=== PATIENT | female | born 1990 | race Caucasian/White ===

== ENCOUNTER 2024-02-17 09:20 | Outpatient (CLI) | payer OTHER, SELFPAY ==
[2024-02-17 14:37] LABS: Thyroid Stimulating Hormone Reflex 5.27 u/IU/mL (0.36-3.74)
[2024-02-17 15:02] LABS: Free T4 Free Thyroxine Reflex 0.98 ng/dL (0.76-1.46)
== END 2024-02-17 09:21 | disposition home or self-care (01) ==
LOC: CHSLAB 09:25
PROVIDERS: PCP Family Medicine
DX: E03.9 Hypothyroidism, unspecified (principal)
CPT/HCPCS: 36415; 84439; 84443

== ENCOUNTER 2024-09-04 09:44 | Outpatient (CLI) | payer OTHER, SELFPAY ==
--- OUTSIDE RECORDS SUMMARY | 2024-09-04 10:40 | XMS_ITS | Clinical Summary ---
Author Organization [facility] Address [address] [place] [address] Care Team Providers Care Dog Breeder Name Role Phone Ayush Pablito Hatfield DO Primary Care Provider [phone] Source Comments [facility],non-owned Affiliates and Associated Physician Practices is amultiple site organization consisting of ambulatory clinics and hospital sitesin [place], [place], [place] and [place]. This disclosure is being madepursuant to the Care Everywhere program and may not contain all information available regarding this patient. Last updated 18.[employer] [facility] Allergies No known active allergies Medications Be aware that medications may not be up to date on this document. Always verify current medications with the patient. No known medications Immunizations Name Administration Dates Next Due TDAP (7yrs+) 04/11/2019 Social History Tobacco Use Types Packs/Day Years Used Date Smoking Tobacco: Never Smokeless Tobacco: Never Estimated Date of Delivery Comme nts Yes 05/30/2019 Sex and Gender Information Value Date Recorded Sex Assigned at Not on file Gender Identity Not on file Sexual Orientation Not on file Last Filed Vital Signs Vital Sign Reading Time Taken Comments Blood Pressure 116/68 04/11/2019 3:18 PM SOFTWARE DEVELOPER MANAGER Pulse 72 04/11/2019 3:18 PM SOFTWARE DEVELOPER MANAGER Temperature 36.7 C (98.1 F) 04/11/2019 3:18 PM SOFTWARE DEVELOPER MANAGER Respiratory Rate - - Oxygen Saturation - - Inhaled Oxygen Concentration - - Weight 68.9 kg (152 lb) 04/11/2019 3:18 PM SOFTWARE DEVELOPER MANAGER Height 167.6 cm (5' 6 ) 04/11/2019 3:18 PM SOFTWARE DEVELOPER MANAGER Body Mass Index 24.53 04/11/2019 3:18 PM SOFTWARE DEVELOPER MANAGER Plan of Treatment Health Maintenance Due Date Last Done Comments PAP SMEAR 1991 HIV SCREENING 09/16/2006 HEPATITIS C SCREENING 09/12/2009 HEPATITIS B VACCINE (1 of 3 - 19+ 3-dose series) 09/16/2010 COVID-19 VACCINE ( - 2023-2 5 season) 2024 INFLUENZA VACCINE (#1) 2024 DEPRESSION SCREENING 06/06/2024 DTAP/TDAP/TD VACCINES (2 - T d or Tdap) 04/11/2029 04/11/2019 ZOSTER VACCINE (1 of 2) 09/16/2041 Respiratory Syncytial Virus (RSV) Vaccine Pt: or over 60 yrs (1 - 1-dose 75+ series) 09/16/2066 HIB VACCINE Aged Out No longer eligi ble based on patient's age to complete this topic HPV VACCINE Aged Out No longer eligi ble based on patient's age to complete this topic MENINGOCOCCAL (Group B) VACC INE SHARED DECISION-MAKING Aged Out No longer eligibl e based on patient's age to complete this topic MENINGOCOCCAL GROUPS A/C/Y/W VACCINE Aged Out No longer eligible b ased on patient's age to complete this topic PNEUMOCOCCAL VACCINE Aged Out No long er eligible based on patient's age to complete this topic Care Teams Dog Breeder Relationship Specialty [place] [address] [address] [address] PCP - General Family Medicine 04/04/19
--- OUTSIDE RECORDS SUMMARY | 2024-09-04 10:40 | XMS_ITS | Encounter Summary ---
Author Organization [facility] Health Address [facility] [place] [address] Care Team Providers Care Rig Builder Name Role Phone Pablito Peacock DO Primary Care Provider [phone] Pablito Peacock DO Unavailable Pablito Peacock DO Unavailable Encounter Details Date Type Department Care Team (Late st Contact Info) Description 04/11/2019 [facility] Outpatient Visit EXTERNAL NON-[facility] [place] [place] [address] [place] [id number] Social History Tobacco Use Types Packs/Day Years Used Date Smoking Tobacco: Never Smokeless Tobacco: Never Estimated Date of Delivery Comme nts Yes 05/30/2019 Sex and Gender Information Value Date Recorded Sex Assigned at Not on file Gender Identity Not on file Sexual Orientation Not on file documented as of this encounter Plan of Treatment Not on file documented as of this encounter Visit Diagnoses Not on filedocumented in this encounter Care Teams Rig Builder Relationship Specialty [place] [address] [id number] PCP - General Family Medicine 04/04/19 [place] [address] [id number] PCP - Attributed-Exclusive Choice 04/06/19 06/05/19 [place] [address] [address] PCP - Attributed-[facility] 08/05/19 09/04/19 documented as of this encounter
--- OUTSIDE RECORDS SUMMARY | 2024-09-04 10:40 | XMS_ITS | Clinical Summary ---
Author Organization [facility] Address [facility] [place] [address] Care Team Providers Care Packaging Materials Inspector Name Role Phone Gael Macias MD Primary Care Provider [phone] Allergies No known active allergies Medications vitamin 28-0.6-0.4-340 MG capsule Take 1 capsule by mouth daily. Active Active Problems Problem Noted Date Diagnosed Date Labor and delivery, indication for care (HHS/HCC ) 11/20/2021 Hypothyroidism 11/20/2021 Immunizations Name Administration Dates Next Due MMR (MMRII) 11/21/2021 Social History Tobacco Use Types Packs/Day Years Used Date Smoking Tobacco: Never Smokeless Tobacco: Never Humiliation, Afraid, Rape, and Kick questionnair e Answer Date Recorded Within the last year, have y ou been afraid of your partner or ex-partner? No 11/20/2021 Within the last year, have y ou been humiliated or emotionally abused in other ways by your partner or ex-partner? No Within the last year, have y ou been kicked, hit, slapped, or otherwise physically hurt by your partner or ex-partner? No 11/20/2021 Within the last year, have y ou been raped or forced to have any kind of sexual activity by your partner or ex-partner? No 11/20/2021 Social Connection and Isolat ion Panel [NHANES] Answer Date Recorded In a typical week, how many times do you talk on the phone with family, friends, or neighbors? More than three times a week 11/20/2021 How often do you get togethe r with friends or relatives? Twice a week 11/20/2021 How often do you attend [facility] or [facility] services? More than 4 times per year 11/20/2021 Do you belong to any clubs o r organizations such as yarsanism groups, unions, fraternal or athletic groups, or school groups? Yes 11/20/2021 How often do you attend meet ings of the clubs or organizations you belong to? More than 4 times per year 11/20/2021 Are you , , di vorced, , never , or living with a partner? 11/20/2021 AUDIT-C Answer Date Recorded Q1: How often do you have a drink containing alcohol? Never 11/20/2021 Q2: How many drinks containi ng alcohol do you have on a typical day when you are drinking? Patient does not drink Q3: How often do you have si x or more drinks on one occasion? Never 11/20/2021 Overall Financial Resource Strain (CARDIA) Answe r Date Recorded How hard is it for you to pa y for the very basics like food, housing, medical care, and heating? Not hard at all 11/20/2021 [facility] - Occupational Stress Questionnaire Answer Date Recorded Do you feel stress - tense, restless, nervous, or anxious, or unable to sleep at night because your mind is troubled all the time - these days? Not at all 11/20/2021 Exercise Vital Sign Answer Date Recorde d On average, how many days pe r week do you engage in moderate to strenuous exercise (like a brisk walk)? 0 days 11/20/2021 On average, how many minutes do you engage in exercise at this level? 0 min 11/20/2021 Hunger Vital Sign Answer Date Recorded Within the past 12 months, y ou worried that your food would run out before you got the money to buy more. Never true 11/21/19 22 Within the past 12 months, t he food you bought just didn't last and you didn't have money to get more. Never true 11/20/2021 PRAPARE - Transportation Answer Date Re corded In the past 12 months, has l ack of transportation kept you from medical appointments or from getting medications? No 11/04 In the past 12 months, has l ack of transportation kept you from meetings, work, or from getting things needed for daily living? No 11/20/2021 Housing Stability Vital Sign Answer Paulino e Recorded In the last 12 months, was t here a time when you were not able to pay the mortgage or rent on time? No 11/20/2021 In the last 12 months, how many places have you lived? 1 11/20/2021 In the last 12 months, was t here a time when you did not have a steady place to sleep or slept in a [place] [facility] [place] (including now)? No 11/20/2021 Comments No Sex and Gender Information Value Date Recorded Sex Assigned at Not on file Legal Sex Female 9:04 AM CDT Gender Identity Not on file Sexual Orientation Not on file Last Filed Vital Signs Vital Sign Reading Time Taken Comments Blood Pressure 114/65 11/21/2021 2:40 AM CDT Pulse 70 11/21/2021 2:40 AM CDT Temperature 36.9 C (98.4 F) 11/21/2021 2:40 AM CDT Respiratory Rate 18 11/21/2021 2:40 AM CDT Oxygen Saturation 97% 11/21/2021 2:40 AM CDT Inhaled Oxygen Concentration - - Weight 74.8 kg (165 lb) 11/20/2021 1:00 AM CDT Height 167.6 cm (5' 6 ) 11/20/2021 1:00 AM CDT Body Mass Index 26.63 11/20/2021 1:00 AM CDT Plan of Treatment Health Maintenance Due Date Last Done Comments Cervical Cancer Screening Pap Smear (Age 30 to 64) Every 3 Years 1991 Annual Physical 09/16/1994 Hepatitis C 09/16/2009 Cervical Cancer Screening Pap with HPV Testing (Age 30 to 64) Every 5 Years 09/16/2021 Cervical Cancer Screening with HPV 09/16/2021 COVID-19 Vaccine ( season) 2024 DTaP, Tdap and Td Vaccines (9 - Td or Tdap) 09/25/2031 09/24/2021, 04/11/2019, 12/05/2015, Additional history exists Hepatitis B Vaccines Completed 09/27/2001, 05/17/2001, 03/23/2001 HPV Vaccines Aged Out No longer eligi ble based on patient's age to complete this topic Meningococcal B Vaccine Aged Out No l onger eligible based on patient's age to complete this topic Meningococcal Vaccine Aged Out No kelsie abhinav eligible based on patient's age to complete this topic Pneumococcal Vaccine: Pediatrics (0 to 5 Years) and At-Risk Patients (6 to 64 Years) Aged Out No longer eligible based on patient's age to complete this topic RSV Immunizations Under 20 Months Aged Out No longer eligible based on patient's age to complete this topic Insurance CONSOCIATE Advance Directives * Full Code (Latest Code Status on File) Date Activated Date Inactivated Comments 11/20/2021 2:08 AM 11/21/2021 2:09 PM Care Teams Packaging Materials Inspector Relationship Specialty Start Date End Date Gael Macias MD PCP - General FAMILY PRACTICE 11/19/21
[2024-09-04 11:17] LABS: Thyroid Stimulating Hormone Reflex 3.64 u/IU/mL (0.36-3.74)
[2024-09-04 16:39] LABS: Free T4 Free Thyroxine 1.06 ng/dL (0.76-1.46)
== END 2024-09-04 09:45 | disposition home or self-care (01) ==
PROVIDERS: PCP Family Medicine
DX: E03.9 Hypothyroidism, unspecified (principal)
CPT/HCPCS: 36415; 84439; 84443

== ENCOUNTER 2024-11-23 13:01 | Outpatient (CLI) | payer OTHER, SELFPAY ==
--- NOTE | ~2024-11-23 | US_ITS ---
Pelvic ultrasound. Clinical History: Menorrhagia Technique: Realtime transabdominal and transvaginal scanning of the pelvis was performed. Color flow Doppler and Doppler spectral analysis were performed. Findings: The uterus is retroverted.. The endometrial stripe has a thickness of 11 mm. No focal mass is identified. The right ovary measures 2.7 x 2.5 x 4.3 cm. No significant right ovarian or adnexal mass is seen. The left ovary measures 1.6 x 2.4 x 3.4 cm. No significant left ovarian or adnexal mass is seen. There is small amount of free fluid in the cul de sac. Impression: Small amount of free fluid, otherwise unremarkable exam. Reviewed, dictated and finalized at location . Impression: Small amount of free fluid, otherwise unremarkable exam.
== END 2024-11-23 13:02 | disposition home or self-care (01) ==
PROVIDERS: PCP Family Medicine; Visit Provider Obstetrics & Gynecology
DX: N92.0 Excessive and frequent menstruation with regular cycle (principal)
CPT/HCPCS: 76830; 76856

== ENCOUNTER 2024-12-01 07:23 | Outpatient (CLI) | payer OTHER, SELFPAY ==
[2024-12-01 08:30] LABS: Free T4 Free Thyroxine 1.14 ng/dL (0.78-2.19)
== END 2024-12-01 07:24 | disposition home or self-care (01) ==
LOC: CHSLAB 07:30
PROVIDERS: PCP Family Medicine
DX: E03.9 Hypothyroidism, unspecified (principal)
CPT/HCPCS: 36415; 84439; 84443

== ENCOUNTER 2025-03-23 08:22 | Outpatient (CLI) | payer OTHER, SELFPAY ==
--- OUTSIDE RECORDS SUMMARY | 2025-03-23 08:29 | XMS_ITS | Data Portability ---
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 Her pre-clinic TSH is above her target for her as patient is trying to conceive, she will change levothyroxine 25 mcg to daily 7 days a week. Proper way of taking levothyroxine and how to make up for missed levothyroxine dose were discussed with her. Will get TSH with reflex free T4 in 3 months. It was discussed with the patient if she conceived, she will call for adjustment in levothyroxine dose If everything stays stable I will plan to see her in a year kristina Not available 04/01/2024 17:39:54 Plan of Treatment Reminders Order Date Submit Date Provider Last Modified By Organization Details Last Modified Time Details Appointments None recorde d. Lab TSH + free T4, serum 024 06/20/19 25 [facility] (Lab), [facility], [place], [address], 5 11:38:13 Referral None recorde d. Procedures None recorde d. Surgeries None recorde d. Imaging None recorde d. Medication Orders None recorde d. Patient TargetsNo targets recorded. Patient InstructionsNo instructions recorded. Reason for Referral None Reported. Results Created Date Observation Date Name Description Value Unit Range Abnormal Flag Note LastModifiedBy Organization Detail LastModifiedTime 12/10/19 25 10/31/2018 imagi ng/di agnos tic resul t No observ ation record ed. [email or web address] Not Available 0 12/09/2024 14:22:57 Result Notes None recorded. 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 Medical Equipment None Reported. Medications Name Sig Start Date Stop Date Status Note LastModified by Organization Details LastModified Time levothyroxi ne 25 mcg tablet Take 1 tablet by mouth every morning Tuesday through Tuesday on an empty stomach with a glass of water 1 hour before breakfast . Take two tablets on Tuesday and Tuesday. 12/11 completed Not Available Not Available Not Available levothyroxi ne 50 mcg tablet Take 1 tablet every day by oral route. 2024 active Not Available Not Available Not Avai lable Delia 3 1,000 mg daily active Not Available Not Available No t Available Multivitami ns 1 daily (contains no biotin) active Not Available Not Available No t Available magnesium citrate 100 mg tablet Take 1 tablet every day by oral route. active Not Available Not Available No t Available Vitals Date Recorded Body weight Heart rate Oxygen saturation Oxygen saturation in Arterial blood by Pulse oximetry Systolic And Diastolic Provider Name and Address Organization Details Last Updated DateTime 5 85614.6 6 g 67 /min 99 % 99 % 120/70 mm[Hg] Merlyn Milner x [facility] 5 10:03:39 Date Recorded Body weight Heart rate Oxygen saturation Oxygen saturation in Arterial blood by Pulse oximetry Systolic And Diastolic Provider Name and Address Organization Details Last Updated DateTime 4 01545.1 3 g 82 /min 98 % 98 % 116/78 mm[Hg] Brody Arellanoerandressa y [facility] 4 15:54:23 Social History Question Answer Notes LastModified by [employer] Details LastModified Time Tobacco Smoking Status Never Smoker Not Available Health Note 03/21/2024 15:04:12 Do You Have An Advance Directive? No [email or web address] Information not available 03/21/2024 What Is Your Level Of Caffeine Consumption? Moderate [email or web address] Information not available 03/21/2024 How Many Times Per Week Do You Exercise? 3-4 Times Per Week [email or web address] Information not available 03/21/2024 Do You Have A Medical Power Of Shipfitters Supervisor? No [email or web address] Information not available 03/21/2024 What Was The Date Of Your Most Recent Tobacco Screening? 03/21/2024 [email or web address] Information not available 03/21/2024 What Is Your Relationship Status? [email or web address] Information not available 03/21/2024 Sex: Unknown Functional Status Question Answer Note LastModified by [employer] Details LastModified Time Do you use any illicit or recreational drugs? No [email or web address] Information not available 03/21/2024 What is your level of alcohol consumption? None [email or web address] Information not available 03/21/2024 Are you currently employed? 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 Occasional [email or web address] Information not available 03/21/2024 Mental Status None recorded. Family History Relationship Description Onset Age of this Age Resolved Age Notes LastModified by Organization Details LastModified Time Paternal Grandfather Heart disease [email or web address] Not available 2023 15:04:10 Mother Disorder of thyroid gland [email or web address] Not available 2023 15:04:11 Sister Disorder of thyroid gland [email or web address] Not available 2023 15:04:11 Medical History Condition Response High Blood Pressure N COPD N Depression N Anxiety Disorder N Arthritis N Cancer N Stroke N Fibromyalgia N Kidney Disease N Bleeding Disorder N Asthma N Seizures N Attention-deficit Hyperactivity Disorder N Thyroid Problems Y Anemia N Diabetes N Hyperlipidemia N Heart Disease N Osteoporosis N Gynecological HistoryNo gynecological history recorded. Obstetrics History GPAL:G 0 P 0 0 0 0 Immunizations Vaccine Type Date Status Note Provider Nam e and Address Organization Details Recorded Time Hib, unspecified formulation 2 completed Not Available [facility] 03/18/2025 09:54:05 DTP 2 completed Not Available [facility] 03/18/2025 09:54:05 OPV, trivalent 2 completed Not Available [facility] 03/18/2025 09:54:05 Hib, unspecified formulation 2 completed Not Available [facility] 03/18/2025 09:54:05 OPV, trivalent 2 completed Not Available [facility] 03/18/2025 09:54:05 DTP 2 completed Not Available [facility] 03/18/2025 09:54:05 DTP 2 completed Not Available [facility] 03/18/2025 09:54:05 Hib, unspecified formulation 2 completed Not Available [facility] 03/18/2025 09:54:05 Hib, unspecified formulation 3 completed Not Available [facility] 03/18/2025 09:54:05 MMR 3 completed Not Available [facility] 03/18/2025 09:54:05 OPV, trivalent 3 completed Not Available [facility] 03/18/2025 09:54:05 DTP 3 completed Not Available [facility] 03/18/2025 09:54:05 OPV, trivalent 7 completed Not Available [facility] 03/18/2025 09:54:05 DTP 7 completed Not Available [facility] 03/18/2025 09:54:05 MMR 7 completed Not Available [facility] 03/18/2025 09:54:05 Hep B, adolescent or pediatric 1 completed Not Available [facility] 03/18/2025 09:54:05 Hep B, adolescent or pediatric 1 completed Not Available [facility] 03/18/2025 09:54:05 Hep B, adolescent or pediatric 2 completed Not Available [facility] 03/18/2025 09:54:05 Hep A, adult 3 completed Not Available [facility] 03/18/2025 09:54:05 yellow fever live 3 completed Not Available [facility] 03/18/2025 09:54:05 Tdap 6 completed Not Available [facility] 03/18/2025 09:54:05 Tdap 9 completed Not Available [facility] 03/18/2025 09:54:05 Influenza, split virus, quadrivalent, PF 1 completed Not Available [facility] 03/18/2025 09:54:05 Tdap 2 completed Not Available [facility] 03/18/2025 09:54:05 MMR 2 completed Not Available [facility] 03/18/2025 09:54:05 Influenza, split virus, trivalent, PF 2 completed Not Available [facility] 03/18/2025 09:54:05 Past Encounters Encounter ID Performer Location Encounter Start Date Encounter Closed Date Diagnosis/Indication Diagnosis SNOMED-CT Code Diagnosis ICD10 Code Diagnosis IMO Codes Diagnosis Note [id number] Ember Daniels MD [facility] ([place]) [address] [place] [address] 03/21/2024 15:33:49 03/21/2024 17:00:02 Conrado thyroiditis 22700155 E06.3 312[address] [facility] hypothyroidism 54128874 E03.8 61759 [id number] Thanh Jarrett, [employer], DOOR ATTENDANT [facility] ([place]) [address] [place] [address] 03/18/2025 09:51:01 03/18/2025 10:49:01 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 823187732 E06.3 Adult heal th examination 123251707 Z00.00 [id number] Health Concerns Section Related Observation LastModified by Organization Detai ls LastModified Time None Recorded Concern Status LastModified by Organization Details LastModified Time None Recorded Advance Directives Directive N: Payers Insurance Date Sequence Insurance Name Policy Number Policy Cardozo Covered Member ID Cardozo Member ID Guarantor Name 03/19/2024 1 [facility] [id number] Unique Jimenez [id number] Unique Jimenez 03/18/2025 1 [facility] [id number] Unique Jimenez [id number] Unique Jimenez Notes Date Note Type Note Provider Name and Address Organization Details Recorded Time 03/21/2024 text/html A 33 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 D uring her she was treated with levothyroxine 50 MCG 5 days a week. She was able to go of off levothyroxine after she delivered. She restarted levothyroxine 25 mcg daily after she was noted to have TSH of 5.04 in in November 2022 as she is trying to conceive. C urrently she takes levothyroxine 25 mcg 5 days a week, on pre-clinic visit labs her TSH was 5.27 with free T4 of 0.98. She reports compliance with levothyroxine and taking it properly. She denies any hyper or hyperthyroid symptoms. T he above information was reviewed with the patient today during her visit and updated as necessary. Ember Daniels MD [address] [facility], [place], [address], [place] [facility] 04/01/2024 17:40:26 OBGyn Episode No OBEpisode recorded.
--- OUTSIDE RECORDS SUMMARY | 2025-03-23 08:29 | XMS_ITS | Clinical Summary ---
Author Organization [facility] Address [address] [place] [address] Care Team Providers Care Journeyman Powerhouse Operator Name Role Phone Ayush Pablito Hatfield DO Primary Care Provider [phone] Source Comments [facility],non-owned Affiliates and Associated Physician Practices is amultiple site organization consisting of ambulatory clinics and hospital sitesin [place], [place], [place] and [place]. This disclosure is being madepursuant to the Care Everywhere program and may not contain all information available regarding this patient. Last updated 18.[facility] Allergies No known active allergies Medications * Be aware that medications may not be up to date on this document. Alwaysverify current medications with the patient. No known medications Immunizations Immunization Administration Dates Next Due TDAP (7yrs+) 04/11/2019 Social History Tobacco Use Types Packs/Day Years Used Date Smoking Tobacco: Never Smokeless Tobacco: Never Estimated Date of Delivery Comme nts Yes 05/30/2019 Sex and Gender Information Value Date Recorded Sex Assigned at Not on file Legal Sex Female 4:17 PM CDT Gender Identity Not on file Sexual Orientation Not on file Last Filed Vital Signs Vital Sign Reading Time Taken Comments Blood Pressure 116/68 04/11/2019 3:18 PM TEXTILE COLORIST FORMULATOR Pulse 72 04/11/2019 3:18 PM TEXTILE COLORIST FORMULATOR Temperature 36.7 C (98.1 F) 04/11/2019 3:18 PM TEXTILE COLORIST FORMULATOR Respiratory Rate - - Oxygen Saturation - - Inhaled Oxygen Concentration - - Weight 68.9 kg (152 lb) 04/11/2019 3:18 PM TEXTILE COLORIST FORMULATOR Height 167.6 cm (5' 6) 04/11/2019 3:18 PM TEXTILE COLORIST FORMULATOR Body Mass Index 24.53 04/11/2019 3:18 PM TEXTILE COLORIST FORMULATOR Plan of Treatment Health Maintenance Due Date Last Done Comments HIV SCREENING 09/16/2006 HEPATITIS C SCREENING 09/12/2009 HEPATITIS B VACCINE (1 of 3 - 19+ 3-dose series) 09/16/2010 HPV VACCINE (1 - 3-dose SCDM series) 09/16/2018 DEPRESSION SCREENING 06/06/2024 COVID-19 VACCINE (1 - 2023-2 5 season) 2025 INFLUENZA VACCINE (#1) 2025 DTAP/TDAP/TD VACCINES (2 - T d or [...] patient's age to complete this topic Insurance [facility] Care Teams Journeyman Powerhouse Operator Relationship Specialty [place] [address] [address] [facility] [place] [address] PCP - General Family Medicine 10/30/19
--- OUTSIDE RECORDS SUMMARY | 2025-03-23 08:29 | XMS_ITS | Encounter Summary ---
Author Organization [facility] Health Address [address] [place] [address] Care Team Providers Care Miller First Name Role Phone Pablito Peacock DO Primary Care Provider [phone] Pablito Peacock DO Unavailable Pablito Peacock DO Unavailable Encounter Details Date Type Department Care Team (Late st Contact Info) Description 04/11/2019 [facility] Outpatient Visit EXTERNAL NON-[facility] [place] [address] [place] [address] Social History Tobacco Use Types Packs/Day Years [...] on filedocumented in this encounter Care Teams Miller First Relationship Specialty [place] [address] [address] [id number] PCP - General Family Medicine 04/04/19 [place] [address] [id number] PCP - Attributed-Exclusive Choice 04/06/19 06/05/19 [place] [address] [place] [phone] PCP - Attributed-[facility] 08/05/19 09/04/19 documented as of this encounter
[2025-03-23 14:03] LABS: Free T4 Free Thyroxine 2.20 ng/dL (0.78-2.19)
[2025-03-23 14:17] LABS: Thyroid Stimulating Hormone < 0.015 uIU/mL (0.465-4.680)
== END 2025-03-23 08:23 | disposition home or self-care (01) ==
LOC: CHSLAB 08:27
PROVIDERS: PCP Family Medicine
DX: E06.3 Autoimmune thyroiditis (principal)
CPT/HCPCS: 36415; 84439; 84443

== ENCOUNTER 2025-05-24 09:52 | Outpatient (CLI) | payer OTHER, SELFPAY ==
--- OUTSIDE RECORDS SUMMARY | 2025-05-24 10:25 | XMS_ITS | Clinical Summary ---
Author Organization [facility] Address [address] [place] [address] Care Team Providers Care Call Center Analyst Name Role Phone Gael Macias MD Primary Care Provider [phone] Allergies No known active allergies Medications vitamin 28-0.6-0.4-340 MG capsule Take 1 capsule by mouth daily. Active Active Problems Problem Noted Date Diagnosed Date Labor and delivery, indication for care 11/21/19 22 Hypothyroidism 11/20/2021 Immunizations Immunization Administration Dates Next Due MMR (MMRII) 11/21/2021 [...] or ex-partner? No 11/20/2021 Social Connection and Isolation Panel Answer Date Recorded In a typical week, how many times do you talk on the phone with family, friends, or neighbors? More than three times a week 11/20/2021 How often do you get togethe r with friends or relatives? Twice a week 11/20/2021 How often do you attend [facility] or taoism services? More than 4 times per year 11/20/2021 Do you belong to any clubs o r organizations such as uatsdin groups, unions, fraternal or athletic groups, or [...] and heating? Not hard at all 11/20/2021 [facility] - Occupational Stress Questionnaire Answer Date Recorded [...] place to sleep or slept in a jail (including now)? No 11/20/2021 Comments No Sex [...] 1:00 AM CDT Height 167.6 cm (5' 6) 11/20/2021 1:00 AM CDT Body Mass Index 26.63 11/20/2021 1:00 AM CDT Plan of Treatment Health Maintenance Due Date Last Done Comments Cervical Cancer Screening Pap Smear (Age 30 to 64) Every 3 Years 1991 Annual Physical 09/16/1994 Hepatitis C 09/16/2009 HPV Vaccines (1 - 3-dose SCDM series) 09/16/2018 Cervical Cancer Screening Pap with HPV Testing (Age 30 to 64) Every 5 Years 09/16/2021 Cervical Cancer Screening with HPV 09/16/2021 COVID-19 Vaccine ( season) 2025 Influenza Adult (#1) 2025 03/12/2021 DTaP, Tdap and Td Vaccines (9 - Td or Tdap) 09/25/2031 09/24/2021, 04/11/2019, 12/05/2015, Additional history exists Hepatitis B Vaccines Completed 09/27/2001, 05/17/2001, 03/23/2001 Hepatitis A Vaccines Aged Out 07/07/2012 No long er eligible based on patient's age to complete this topic Meningococcal B Vaccine Aged Out No l onger eligible based on patient's age to complete this topic Meningococcal Vaccine Aged Out No kelsie abhinav eligible based on patient's age to complete this topic Pneumococcal Vaccine: Pediatrics (0 to 5 Years) and At-Risk Patients (6 to 49 Years) Aged Out No longer eligible based on patient's age to complete this topic RSV Immunizations Under 20 Months Aged Out No longer eligible based on patient's age to complete this topic Insurance [employer] Advance Directives * Full Code (Latest Code Status on File) Date Activated Date Inactivated Comments 11/20/2021 2:08 AM 11/21/2021 2:09 PM Care Teams Call Center Analyst Relationship Specialty Start Date End Date Gael Macias MD PCP - General FAMILY PRACTICE 11/19/21
--- OUTSIDE RECORDS SUMMARY | 2025-05-24 10:25 | XMS_ITS | Encounter Summary ---
Author Organization [facility] Health Address [address] [place] [address] Care Team Providers Care Sawmill Moulder Operator Name Role Phone Pablito Peacock DO Primary Care Provider [phone] Pablito Peacock DO Unavailable Pablito Peacock DO Unavailable Encounter Details Date Type Department Care Team (Late st Contact Info) Description 04/11/2019 [facility] Outpatient Visit EXTERNAL NON-[facility] [place] [place] [address] [place] [address] Social History Tobacco Use Types Packs/Day Years [...] on filedocumented in this encounter Care Teams Sawmill Moulder Operator Relationship Specialty [place] [address] [address] [phone] PCP - General Family Medicine 04/04/19 [place] [address] [phone] PCP - Attributed-Exclusive Choice 04/06/19 06/05/19 [place] [address] [address] [address] [phone] PCP - Attributed-[facility] 08/05/19 09/04/19 documented as of this encounter
--- OUTSIDE RECORDS SUMMARY | 2025-05-24 10:25 | XMS_ITS | Clinical Summary ---
Author Organization [facility] Address [address] [place] [address] Care Team Providers Care Avionics Manager Name Role Phone Ayush Pablito Hatfield DO Primary Care Provider [phone] Source Comments [facility],non-owned Affiliates and Associated Physician Practices is amultiple site organization consisting of ambulatory clinics and hospital [place]in [place] and [place]. This disclosure is being madepursuant to the Care Everywhere program and may not contain all information available regarding this patient. Last updated 18.[employer] [facility] Allergies No known active allergies Medications * [...] Comments Blood Pressure 116/68 04/11/2019 3:18 PM PLASTIC SURGERY COORDINATOR Pulse 72 04/11/2019 3:18 PM PLASTIC SURGERY COORDINATOR Temperature 36.7 C (98.1 F) 04/11/2019 3:18 PM PLASTIC SURGERY COORDINATOR Respiratory Rate - - Oxygen Saturation - - Inhaled Oxygen Concentration - - Weight 68.9 kg (152 lb) 04/11/2019 3:18 PM PLASTIC SURGERY COORDINATOR Height 167.6 cm (5' 6) 04/11/2019 3:18 PM PLASTIC SURGERY COORDINATOR Body Mass Index 24.53 04/11/2019 3:18 PM PLASTIC SURGERY COORDINATOR Plan of Treatment Health Maintenance Due Date Last Done Comments HIV SCREENING 09/16/2006 HEPATITIS C SCREENING 09/12/2009 HEPATITIS B VACCINE (1 of 3 - 19+ 3-dose series) 09/16/2010 HPV VACCINE (1 - 3-dose SCDM series) 09/16/2018 DEPRESSION SCREENING 06/06/2024 COVID-19 VACCINE (1 - 2024-2 6 season) 2025 INFLUENZA VACCINE (#1) 2025 DTAP/TDAP/TD [...] patient's age to complete this topic Insurance [facility] Care Teams Avionics Manager Relationship Specialty [place] [address] [facility] [facility] [place] [phone] PCP - General Family Medicine 10/30/19
[2025-05-24 10:49] LABS: Free T4 Free Thyroxine 0.94 ng/dL (0.78-2.19)
[2025-05-24 11:03] LABS: Thyroid Stimulating Hormone 3.510 uIU/mL (0.465-4.680)
== END 2025-05-24 09:53 | disposition home or self-care (01) ==
DX: E03.9 Hypothyroidism, unspecified (principal)
CPT/HCPCS: 36415; 84439; 84443